=== PATIENT | female | born 1970 | race Caucasian/White ===

== ENCOUNTER 2023-07-13 05:35 | Day surgery (SDC) | payer BC, MEDICAID ==
[2023-07-05 13:49] LABS: BASOPHILS # (AUTO) 0.1 X10'3 (0-0.2); BASOPHILS % (AUTO) 0.8 % (0-1); EOSINOPHILS # (AUTO) 0.1 X10'3 (0-0.9); EOSINOPHILS % (AUTO) 1.4 % (0-6); LYMPHOCYTES # (AUTO) 2.7 X10'3 (1.1-4.8); LYMPHOCYTES % (AUTO) 27.3 % (21-51); MEAN CORPUSCULAR HEMOGLOBIN 26.5 PG (27.0-31.0); MEAN CORPUSCULAR HGB CONC 32.8 g/dL (33.0-36.5); MEAN CORPUSCULAR VOLUME 80.6 FL (78-98); MEAN PLATELET VOLUME 8.7 FL (7.4-10.4); MONOCYTES # (AUTO) 0.6 X10'3 (0-0.9); MONOCYTES % (AUTO) 6.4 % (2-12); NEUTROPHILS # (AUTO) 6.4 X10'3 (1.8-7.7); NEUTROPHILS % (AUTO) 64.1 % (42-75); PRE OP HEMATOCRIT 39.4 % (35.0-45.0); PRE OP HEMOGLOBIN 12.9 g/dL (12.0-16.0); PRE OP PLATELET COUNT 218 X10'3 (140-440); RED BLOOD COUNT 4.89 X10'6 (4.20-5.60); RED CELL DISTRIBUTION WIDTH 17.1 % (11.5-14.5)
[2023-07-05 14:46] LABS: ALBUMIN 3.7 G/DL (3.4-5.0); ALKALINE PHOSPHATASE 78 IU/L (46-116); BLOOD UREA NITROGEN 10 MG/DL (7-18); BUN/CREATININE RATIO 10.2 (10.0-20.0); CALCIUM 8.6 MG/DL (8.5-10.1); CHLORIDE 104 MMOL/L (99-107); CREATININE 0.98 MG/DL (0.40-0.90); PRE OP ALT 18 U/L (30-65); PRE OP ANION GAP 11 (8-16); PRE OP AST 16 U/L (10-37); PRE OP BILIRUB, TOTAL 0.4 MG/DL (0.0-1.0); PRE OP GLUCOSE 100 MG/DL (70-104); PRE OP POTASSIUM 3.7 MMOL/L (3.4-5.1); PRE OP SODIUM 142 MMOL/L (135-145); TOTAL CARBON DIOXIDE 26.9 MMOL/L (24-32); TOTAL PROTEIN 7.5 G/DL (6.4-8.2); eGFR 59 ML/MIN
[2023-07-13] VITALS (17 sets, daily range): BP systolic 106–166; BP diastolic 73–103; PULSE 58–84; RESP 12–18; TEMP 98.7; O2SAT 94–98
[~2023-07-13] VITALS: Ht 165.1 cm; Wt 102.7 kg
[~2023-07-13 05:35] MED LIST: DAPA10TA PO; DULA3PEN; ESCI20TA39 PO; FENO48TA10 PO; IBUP-1986 PO; LEVO5TAB29 PO; OMEP40CA21 PO; PREG200C28 PO; cefazolin 2gm/D5W 100mL 100 ML IV ONE; famotidine 20mg tablet PO ONE; ringers solution, lacted 1,000 ML IV SCH
[2023-07-13] MEDS ORDERED: BUPIVAcaine/PF 2.5mg/ml (0.25%) 10ml vial ONE (06:42)
[2023-07-13] MEDS ORDERED: ringers solution, lacted 1,000 ML IV SCH (07:45)
[2023-07-13] MEDS ORDERED: enalaprilat dihydrate 2.5mg/2ml vial IV PRN (07:45)
[2023-07-13] MEDS ORDERED: labetalol 20mg/4ml (5mg/ml) syringe IV PRN (07:45)
[2023-07-13] MEDS ORDERED: ondansetron/PF 4mg/2ml inj IV PRN (07:45)
[2023-07-13] MEDS ORDERED: HYDROmorphone/PF 0.2 MG/ML SYRINGE IV PRN ×2 (07:45)
[2023-07-13] MEDS ORDERED: BUPIVAcaine/PF 2.5mg/ml (0.25%) 10ml vial IJ ONE (08:30)
[2023-07-13] MEDS ORDERED: MIDAZolam 1 MG/ML 5ML VIAL ONE (08:35)
[2023-07-13] MEDS ORDERED: fentaNYL/PF 50MCG/1 ML 2ML syringe ONE (08:35)
[2023-07-13] MEDS ORDERED: ketorolac trometh. 30mg/ml inj. ONE (08:36)
[2023-07-13] MEDS ORDERED: LIDOcaine 2% (20mg/ml) 5ml vial ONE ×2 (08:36)
[2023-07-13] MEDS ORDERED: LIDOcaine 0.5% (5mg/ml) 50ml vial ONE (08:36)
--- NOTE | 2023-07-13 09:22 | NUR ---
Received from OR via [facility] TO RR 6, accompanied by Anesthesiologist DR HARRINGTON and report given by Anesthesiolgist. PT PRESENT WITH 22G LEFT FOREARM, RIGHT ELBOW DRESSING CDI,IC EPACK PLACED ON RIGHT ELBOW, SPO2 97% 10L MASK, LR RUNNING AT 100MLS/HR, VSS. WILL CONTINUE TO MONITOR. Addendum: 07/13/23 at 0938 by Yue Lopes RN, RN Amended: Links added.
[2023-07-13] MEDS ORDERED: HYDROcodone/acetaminophen 10/325mg tab PO ONE (10:50)
--- NOTE | 2023-07-13 11:52 | NUR ---
I HAVE REVIEWED D/C INSTRUCTIONS WITH PATIENT AND THEY HAVE VERBALIZED UNDERSTANDING OF INSTRUCTIONS. PATIENT D/C HOME WITH ALL BELONGINGS AND [facility] GAVE TRANSPORT Addendum: 07/13/23 at 1221 by Yue Lopes RN, RN Amended: Links added.
== END 2023-07-13 11:52 | disposition home or self-care (01) ==
LOC: PAS 05:35
PROVIDERS: ATTEND Orthopaedic Surgery Hand Surgery
DX: G56.21 Lesion of ulnar nerve, right upper limb (principal); F32.A Depression, unspecified; F41.9 Anxiety disorder, unspecified; G43.909 Migraine, unspecified, not intractable, without status migrainosus; F17.210 Nicotine dependence, cigarettes, uncomplicated; E11.9 Type 2 diabetes mellitus without complications; E66.9 Obesity, unspecified; Z68.38 Body mass index [BMI] 38.0-38.9, adult; Z98.51 Tubal ligation status; Z98.890 Other specified postprocedural states; Z90.710 Acquired absence of both cervix and uterus; Z88.2 Allergy status to sulfonamides; Z88.5 Allergy status to narcotic agent; Z91.040 Latex allergy status; Z88.8 Allergy status to other drugs, medicaments and biological substances; Z79.899 Other long term (current) drug therapy
CPT/HCPCS: 36415; 64718; 80053; 82948; 85025; 93005; J0690; J1885; J2250; J3010; J3490; J7030; J7120; Z7506; Z7512; A4215; A6449